=== PATIENT | female | born 1960 | race Caucasian/White ===

== ENCOUNTER → 2018-06-09 | Day surgery (SDC) | payer BC ==
[~2018-06-09] MED LIST: ASPIR 8181 MG PO; FENTANYL CITRATE/PF 100MCG/2 ML INJ ONE; JARDIANCE PO; LISINOPRIL40 MG PO; METFORMIN HCL1000 MG PO; MIDAZOLAM HCL 2 MG/2 ML VIAL ONE; OMEPRAZOLE20 MG PO; PROPOFOL IV EMULSION 10 MG/ML 20 ML VIAL ONE; SIMVASTATIN20 MG PO; SYNTHROID125 MCG PO; TRULICITY SQ; XYZAL5 MG PO
[2018-06-09 09:45] VITALS: BP 110/64
--- NOTE | 2018-06-09 10:54 | Operative Report ---
DATE OF PROCEDURE: June 09, 2018 PROCEDURE PERFORMED: Colonoscopy. PREOPERATIVE DIAGNOSIS: History of colon polyps. POSTOPERATIVE DIAGNOSIS: History of colon polyps. PREOPERATIVE MEDICATIONS: Consisted of general anesthesia. Using the Olympus SmashFly video colonoscope, it was inserted into the patient's rectum and advanced without difficulty to the level of the cecum. The colonoscope was taken back down to the rectum. No new colon polyps were found. Down in the anal canal, there was evidence of some anal cryptitis. The colonoscope was withdrawn from the patient's rectum, and the procedure was ended. Job#: [id number]
== END | disposition home or self-care (01) ==
LOC: OR 06:55
PROVIDERS: ATTEND Internal Medicine Gastroenterology
DX: Z09 Encounter for follow-up examination after completed treatment for conditions other than malignant neoplasm (principal); Z86.010 Personal history of colon polyps; K62.89 Other specified diseases of anus and rectum; K21.9 Gastro-esophageal reflux disease without esophagitis; M06.9 Rheumatoid arthritis, unspecified; G47.33 Obstructive sleep apnea (adult) (pediatric); I10 Essential (primary) hypertension; E66.01 Morbid (severe) obesity due to excess calories; E11.9 Type 2 diabetes mellitus without complications; E03.9 Hypothyroidism, unspecified; F17.210 Nicotine dependence, cigarettes, uncomplicated; Z88.0 Allergy status to penicillin; Z79.82 Long term (current) use of aspirin; Z79.84 Long term (current) use of oral hypoglycemic drugs; Z68.42 Body mass index [BMI] 45.0-49.9, adult; Z80.0 Family history of malignant neoplasm of digestive organs
CPT/HCPCS: 36415; 45378; 82948; J2250